=== PATIENT | male | born 1945 | race Caucasian/White ===

== ENCOUNTER 2017-04-06 19:40 | Observation (INO) ==
[2017-04-06] MEDS ORDERED: LABETALOL 20 MG/4 ML SYRINGE IV STA (20:36)
[2017-04-06] MEDS ORDERED: LABETALOL 20 MG/4 ML SYRINGE IV ONE (20:39)
[2017-04-06 20:43] LABS: Basophils # 0.1 10*3/uL (0.0-0.2); Basophils % 0.7 % (0.0-0.8); Eosinophils # 0.2 10*3/uL (0.0-0.87); Eosinophils % 2.5 % (0.00-10.9); Hemoglobin 13.8 GM/DL (14.0-18.0); Immature Granulocytes % 0.5 %; Immature Granulocytes Absolute 0.04 #; Lymphocytes # 2.2 10*3/uL (1.4-4.0); Lymphocytes % 25.6 % (21.2-54.2); Mean Corpuscular HGB Conc 35.4 GM/DL (32-36); Mean Corpuscular Hemoglobin 32 PG (27-34); Mean Corpuscular Volume 90.9 FL (87-102); Monocytes # 0.8 10*3/uL (0.11-0.8); Monocytes % 9.7 % (1.7-12.7); Neutrophils # 5.3 10*3/uL (1.4-7.4); Platelet Count 328 T/CUMM (130-400); Red Blood Count 4.29 MC/CUMM (3.8-5.5); Red Cell Distribution Width 11.9 % (9.3-17.3); White Blood Count 8.6 T/CUMM (4-12)
[2017-04-06 21:06] LABS: Calcium 8.4 MG/DL (8.5-10.1); Osmolality,Calculated 273.1 MOS/KG (273-304); Potassium 3.4 MMOL/L (3.5-5.1)
[2017-04-06] MEDS ORDERED: cloNIDine 0.1 MG TABLET PO STA (21:30)
[2017-04-06] MEDS ORDERED: cloNIDine 0.1 MG TABLET ONE (21:31)
[2017-04-06] MEDS ORDERED: MORPHINE 2 MG/1 ML SYRINGE IV PRN (22:46)
[2017-04-06] MEDS ORDERED: ONDANSETRON 4 MG/2 ML VIAL IV PRN (22:46)
[2017-04-06] MEDS ORDERED: SIMETHICONE CHEW 125 MG TABLET PO PRN (22:47)
[2017-04-06] MEDS ORDERED: amLODIPine 5 MG TABLET PO SCH (23:00)
[2017-04-06 23:16] LABS: Risk Ratio 5.29; VLDL CHOLESTEROL 21.6 MG/DL
[2017-04-07] MEDS ORDERED: FAMOTIDINE INJ 40 MG in SODIUM CHLORIDE 0.9% 100 ML IV SCH (00:12)
[2017-04-07] MEDS ORDERED: MORPHINE 2 MG/1 ML SYRINGE IV PRN (00:12)
[2017-04-07] MEDS ORDERED: SIMETHICONE CHEW 125 MG TABLET PO PRN (00:12)
[2017-04-07] MEDS ORDERED: ONDANSETRON 4 MG/2 ML VIAL IV PRN (00:12)
[2017-04-07] MEDS ORDERED: amLODIPine 5 MG TABLET PO SCH (00:12)
[2017-04-07 01:36] LABS: Risk Ratio 5.67; VLDL CHOLESTEROL 23.8 MG/DL
[2017-04-07] MEDS: FAMOTIDINE INJ 40 MG in SODIUM CHLORIDE 0.9% 100 ML IV SCH ×3 (04:05→15:20)
[2017-04-07] MEDS ORDERED: CARVEDILOL 25 MG TABLET PO SCH (08:00)
[2017-04-07] MEDS ORDERED: LISINOPRIL 10 MG TABLET PO SCH ×2 (09:00→10:30)
[2017-04-07] MEDS ORDERED: DOCUSATE SODIUM 100 MG CAPSULE PO SCH (09:00)
[2017-04-07] MEDS: DOCUSATE SODIUM 100 MG CAPSULE PO SCH ×2 (09:08→20:35)
[2017-04-07 09:20] LABS: Calcium 8.9 MG/DL (8.5-10.1); Potassium 3.6 MMOL/L (3.5-5.1)
[2017-04-07] MEDS: CARVEDILOL 25 MG TABLET PO SCH ×2 (09:22→20:36)
[2017-04-07] MEDS ORDERED: DOXAZOSIN 1 MG TABLET PO SCH (10:30)
[2017-04-07] MEDS: FUROSEMIDE 40 MG TABLET PO SCH (11:31)
[2017-04-07] MEDS ORDERED: cloNIDine 0.1 MG TABLET PO PRN (14:32)
[2017-04-07] MEDS ORDERED: MELATONIN 3 MG TABLET PO SCH (21:00)
[2017-04-08] MEDS: FAMOTIDINE INJ 40 MG in SODIUM CHLORIDE 0.9% 100 ML IV SCH (03:11)
[2017-04-08 06:07] LABS: Basophils # 0.1 10*3/uL (0.0-0.2); Basophils % 0.5 % (0.0-0.8); Eosinophils # 0.1 10*3/uL (0.0-0.87); Eosinophils % 1.2 % (0.00-10.9); Hematocrit 36.1 VOL% (42.0-52.0); Immature Granulocytes % 0.3 %; Immature Granulocytes Absolute 0.03 #; Lymphocytes # 1.8 10*3/uL (1.4-4.0); Lymphocytes % 18.7 % (21.2-54.2); Mean Corpuscular Hemoglobin 32 PG (27-34); Mean Corpuscular Volume 88.7 FL (87-102); Mean Platelet Volume 9.9 FL (9.6-12.0); Monocytes # 0.8 10*3/uL (0.11-0.8); Monocytes % 8.3 % (1.7-12.7); Platelet Count 327 T/CUMM (130-400); Red Blood Count 4.07 MC/CUMM (3.8-5.5); Red Cell Distribution Width 11.8 % (9.3-17.3); White Blood Count 9.8 T/CUMM (4-12)
[2017-04-08 06:37] LABS: Calcium 8.3 MG/DL (8.5-10.1); Osmolality,Calculated 271.2 MOS/KG (273-304); Potassium 3.4 MMOL/L (3.5-5.1)
[2017-04-08] MEDS ORDERED: PANTOPRAZOLE 40 MG TABLET PO SCH (09:00)
[2017-04-08] MEDS: CARVEDILOL 25 MG TABLET PO SCH (09:27)
[2017-04-08] MEDS: DOCUSATE SODIUM 100 MG CAPSULE PO SCH (09:27)
[2017-04-08] MEDS: FUROSEMIDE 40 MG TABLET PO SCH (09:27)
[2017-04-08 15:56] VITALS: BP 122/70
== END 2017-04-08 16:18 | disposition home or self-care (01) ==
LOC: N.EDINP 19:40 → N.ED 19:40 → N.5E 23:15
PROVIDERS: ADMIT Internal Medicine; ATTEND Internal Medicine